=== PATIENT | male | born 1960 | race Caucasian/White ===

== ENCOUNTER → 2018-07-18 | Day surgery (SDC) | payer OTHER ==
[2018-07-05 10:48] LABS: ANION GAP 11.1 mmol/L (8-16); BLOOD UREA NITROGEN 19 mg/dL (7-26); BUN/CREATININE RATIO 16 (6-25); CALCIUM 8.9 mg/dL (8.4-10.2); CARBON DIOXIDE 28 mmol/L (22-29); CHLORIDE 101 mmol/L (98-107); CREATININE, SERUM 1.17 mg/dL (0.72-1.25); EST GLOMERULAR FILTRATION RATE > 60 ML/MIN (60-); GLUCOSE 119 mg/dL (74-118); POTASSIUM 4.1 mmol/L (3.5-5.1); SODIUM 136 mmol/L (136-145)
[~2018-07-18] MED LIST: CALCIUM PO; CEFAZOLIN SOD 1 GM/NS 50ML 50 ML IV ONE; DEXAMETHASONE SOD PHOS INJ 4 MG/ML VIAL ONE; FENTANYL CITRATE/PF 100MCG/2 ML INJ ONE; KETOROLAC TROMETHAMINE 30 MG/ML VIAL ONE; LIDOCAINE HCL 2% LOCAL INJ 5 ML SDV VIAL INJ ONE; METFORMIN HCL500 MG PO; MIDAZOLAM HCL 2 MG/2 ML VIAL ONE; MULTI-VITAMIN1 EACH PO; ONDANSETRON HCL INJ 2MG/ML 2ML 2 MG/ML VIAL ONE; PROPOFOL IV EMULSION 10 MG/ML 20 ML VIAL ONE; SEVOFLURANE INHAL SOLN 250 ML PEN BTL ONE; TESTOSTERO100 MG/1 M INJ; VIT B12 PO; VIT D PO
[2018-07-18 09:45] VITALS: BP 138/99
--- NOTE | 2018-07-18 10:28 | Operative Report ---
DATE OF PROCEDURE: July 18, 2018 PREOPERATIVE DIAGNOSES 1. Dupuytren's contracture, left little finger. 2. Dupuytren's contracture, left ring finger. 3. Carpal tunnel syndrome. POSTOPERATIVE DIAGNOSES 1. Dupuytren's contracture, left little finger. 2. Dupuytren's contracture, left ring finger. 3. Carpal tunnel syndrome. 4. Flexor tenosynovitis, wrist. PROCEDURES 1. Excision of Dupuytren's cord, palm and left little finger. 2. Resection of Dupuytren's contracture, palm and left ring finger. 3. Open carpal tunnel release. 4. Flexor tenosynovectomy, wrist. ANESTHESIA: General. HISTORY: Patient is a 57-year-old right-hand dominant male with significant Dupuytren's diathesis. He also has nerve conduction study testing showing that he has carpal tunnel syndrome. Risks, benefits and alternatives of treatment were discussed with the patient. He is prepared to undergo the procedures outlined. PROCEDURE: Patient was marked preoperatively in the holding area. He is brought to the operating theater, and after the induction of adequate general anesthesia, he was prepped and draped in a supine position. A time out was performed. The procedure was begun by marking out the cord to the ring and little fingers. The cord to the little fingers originates in the midpalm and extends all the way to the middle phalanx. The cord on the ring finger is mostly in the palm and then extends on to the proximal phalanx. There is PIP joint and MP joint contractures of the little finger. The 2.5-cm incision was marked out in the intrathenar space. The left upper extremity was exsanguinated and the tourniquet was inflated to a pressure of 250 mmHg. The incision in the intrathenar space was made first through the skin and subcutaneous tissues. Venous tributaries are controlled with the bipolar cautery. The incision was deepened through the palmar fascia until the transverse carpal ligament was identified. The ligament is sharply sectioned taking care to protect and preserve the median nerve underlying it. After the complete ligament was transected, the distal volar forearm fascia was divided under direct view. Proliferative flexor tenosynovium was noticed to encompass the median nerve and this was radically excised. After performing this maneuver, the nerve was noted to lie adequately decompressed. The wound was copiously irrigated with bacteriostatic saline and closed with 5-0 nylon in an interrupted horizontal mattress fashion. The incision through to the little finger is made directly over the cord through the skin and down to the Dupuytren's cord. Using sharp dissection, the skin flaps were elevated off of the Dupuytren's cord, the entire length of the cord, which is from the proximal palm to the middle phalanx. At this point, the proximal edge of the palmar fascial cord is elevated out of the palm using a hemostat. The proximal section is transected sharply using a scalpel. The cord is then elevated out of the plane of the palm, and the ulnar neurovascular bundle and the radial neurovascular bundle are identified in the palm. Using the 2 neurovascular structures as a guide, the dissection continues from proximal to distal excising the Dupuytren's cord directly off of the flexor tendon sheath. Care was taken to ensure that all of the vertical extensions to the interossei muscles are taken with the specimen as well. The dissection continues to the level of the MP joint keeping the neurovascular bundles in sight, and then finally onto the little finger where the dissection terminates at the end of the cord at the level of the middle phalanx. After removal of the cord, the finger was noted to passively extend fully without difficulty. Rather than make a separate incision in the palm for the ring finger, the dissection continued under the radial aspect of the skin flap towards the palmar cord of the left ring finger. Once the skin was sharply elevated off of the cord, the neurovascular bundle on the radial side of the ring finger was identified in the palm. At this point, the proximal portion of the cord was elevated using a hemostat and then transected. Using the radial neurovascular bundle and the ulnar neurovascular bundle as a guide, the dissection continued from the proximal palm to the level of the MP joint where the cord was removed in its entirety. There was a separate Dupuytren's nodule over the PIP and middle phalanx region. A separate longitudinal incision was made over this nodule, and then nodule was dissected and removed in its entirety. The wounds were irrigated with bacteriostatic saline. The incisions were closed with 5-0 nylon in an interrupted horizontal mattress fashion. Marcaine field blocks were performed at all the incisions sites. The tourniquet was deflated. All the fingers pinked up nicely, and the wounds were noted to be hemostatic. Bactroban ointment and Xeroform gauze were placed directly on the incisions. Sterile dressings were then applied to the hand, wrist and forearm. Then a fiberglass splint was fashioned to maintain the wrist in a modest amount of extension, and the MPs at 60 to 70 degrees of flexion and the IPs neutral. This was held in place with a loosely wrapped Taj wrap. The patient tolerated the procedure well, and was brought to the recovery room in satisfactory condition and discharged with a postoperative instruction sheet, as well as a followup appointment. Job#: [id number]
== END | disposition home or self-care (01) ==
LOC: OR 05:10
PROVIDERS: ATTEND Plastic Surgery
DX: M72.0 Palmar fascial fibromatosis [Dupuytren] (principal); G56.02 Carpal tunnel syndrome, left upper limb; M65.842 Other synovitis and tenosynovitis, left hand; E11.9 Type 2 diabetes mellitus without complications; Z79.84 Long term (current) use of oral hypoglycemic drugs; Z01.810 Encounter for preprocedural cardiovascular examination; Z01.812 Encounter for preprocedural laboratory examination
CPT/HCPCS: 26123; 26125; 36415 ×2; 64721; 80048; 82948; 88304; 93005; J0690; J1100; J1885; J2001; J2250; J2405; J2704